=== PATIENT | female | born 1995 | race Two or more races ===

== ENCOUNTER 2020-07-10 20:57 | Emergency (ER) | payer OTHER ==
[~2020-07-10] VITALS: Ht 160 cm; Wt 59.0 kg
--- NOTE | 2020-07-10 21:09 | NUR ---
ED Nurse Note: Patient walked in from home d/t head injury that occurred at 1730 today, per patient she was doing yoga and fell on her head, laceration noted on right medial side of head approximately 1 inch in length. Patient aao x 4 and ambulatory with steady gait. Patient reports she does not remember what occurred after the fall and she feels delayed in thinking than normal. Aching pain 3/10, nonradiating. Patient stable upon assessment.
[2020-07-10 21:11] VITALS: BP 110/70
--- NOTE | 2020-07-10 21:28 | NUR ---
ED Nurse Note: ERMD at bedside.
--- NOTE | 2020-07-10 21:31 | Emergency Room Report ---
History of Present Illness General Chief Complaint: Laceration Source: Patient Present Illness HPI Disclaimer: Please note that this report is being documented using Theorem technology. This can lead to erroneous entry secondary to incorrect interpretation by the dictating instrument. HPI: 25-year-old female presents after a mechanical fall. She was doing a yoga pose when she fell forward striking her head. Questionable loss of consciousness. She denies any nausea or vomiting. But sustained a laceration to the top of the scalp. She denies any medical history. She is currently not on any medications. 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 Patient History Last Menstrual Period: 07/2020; has IUD Reviewed Nursing Documentation: PMH: Agreed; PSxH: Agreed Review of Systems All Other Systems: negative except mentioned in HPI Physical Exam Vital Signs Date Time Temp Pulse Resp B/P (MAP) Pulse Ox O2 Delivery O2 Flow Rate FiO2 07/10/20 21:00 98.2 100 15 102/64 (77) 97 Room Air Sp02 EP Interpretation: reviewed, normal General Appearance: well appearing, no apparent distress Head: normocephalic, other - 3 cm laceration to the scalp, no depressions Eyes: bilateral eye PERRL, bilateral eye EOMI ENT: hearing grossly normal, moist mucus membranes Neck: full range of motion, supple, other - No midline tenderness Respiratory: lungs clear, normal breath sounds, no rhonchi, no respiratory distress, no retraction, no wheezing Cardiovascular #1: normal peripheral pulses, regular rate, rhythm, no murmur Gastrointestinal: non tender, soft, non-distended, no guarding Neurologic: alert, motor strength/tone normal, dredge master III-XII nml as tested, oriented x3, cerebellar normal, normal gait, no focal defects Skin: normal color, warm/dry Procedures Laceration/Wound Repair Laceration/Wound Repair : Consent: Verbal Wound Location: head Wound's Depth, Shape: superficial, linear Wound Explored: clean Wound Repaired With: anson Patient Tolerated: Well Complications: None Medical Decision Making Diagnostic Impression: Primary Impression: Closed head injury Additional Impression: Scalp laceration ER Course Patient presented after a fall from a yoga pose. She was neurologically intact on exam in no acute distress. She did sustain a laceration of the scalp which was repaired by me. Currently have low suspicion for skull fracture or intracranial hemorrhage. I will discharge patient with return precautions and return in 1 week for staple removal. Return sooner for any worsening symptoms. Discussed doing a CT scan of the brain but at this time we will defer as she is neurologically intact. Last Vital Signs Date Time Temp Pulse Resp B/P (MAP) Pulse Ox O2 Delivery O2 Flow Rate FiO2 07/10/20 21:11 98.2 72 18 110/70 98 Room Air Disposition: HOME, SELF-CARE Condition: Improved Timoteo Argueta M.D. Jul 10, 2020 21:31
[2020-07-10 21:35] VITALS: BP 118/78
--- NOTE | 2020-07-10 21:35 | NUR ---
ER DISCHARGE NOTE: Patient is cleared to be discharged per ERMD, pt is aox4, on room air, with stable vital signs. pt was given dc instructions, pt was able to verbalize understanding, pt id band removed. pt is able to ambulate with steady gait. pt took all belongings. pt stable upon discharge.
== END 2020-07-10 21:35 | disposition home or self-care (01) ==
LOC: EMR 21:18
DX: S01.01XA Laceration without foreign body of scalp, initial encounter (principal); S09.90XA Unspecified injury of head, initial encounter; W22.8XXA Striking against or struck by other objects, initial encounter; Y93.42 Activity, yoga; Y92.9 Unspecified place or not applicable; Z97.5 Presence of (intrauterine) contraceptive device; Z88.6 Allergy status to analgesic agent
CPT/HCPCS: 99283

== ENCOUNTER 2020-07-18 10:34 | Emergency (ER) | payer MEDICAID ==
[~2020-07-18] VITALS: Ht 160 cm; Wt 59.0 kg
[2020-07-18 10:44] VITALS: BP 110/66
--- NOTE | 2020-07-18 11:14 | Emergency Room Report ---
History of Present Illness General Chief Complaint: Wound Recheck/Suture Removal Source: Patient Present Illness HPI The patient presents for removal of anson from her scalp. The patient has anson secondary to a scalp laceration. She is requesting removal. She states she is feeling well with no complaints. She has no pain. 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 COVID-19 Screening: Negative COVID-19 COVID-19 Testing Source: 07/17/20 Patient History Past Medical History: other - G^PD Social History: Denies: smoking, alcohol use, drug use Now: No Reviewed Nursing Documentation: PMH: Agreed; PSxH: Agreed Nursing Documentation-PMH Past Medical History: No History, Except For Review of Systems All Other Systems: negative except mentioned in HPI Physical Exam Vital Signs Date Time Temp Pulse Resp B/P (MAP) Pulse Ox O2 Delivery O2 Flow Rate FiO2 07/18/20 10:44 98.6 80 17 110/66 (81) 98 Room Air Sp02 EP Interpretation: reviewed, normal General Appearance: no apparent distress, alert, GCS 15, non-toxic Head: normocephalic, other - [address], healed scalp laceration. Eyes: bilateral eye normal inspection, bilateral eye PERRL ENT: hearing grossly normal, normal voice Neck: normal inspection Respiratory: no respiratory distress, no retraction, no accessory muscle use, speaking full sentences Rectal: deferred Musculoskeletal: back normal, normal range of motion, gait/station normal, non- tender Neurologic: alert, motor strength/tone normal, oriented x3, sensory intact, responsive, speech normal Psychiatric: judgement/insight normal, memory normal, mood/affect normal, no suicidal/homicidal ideation Skin: other - See above in Head exam. Medical Decision Making Diagnostic Impression: Primary Impression: Encounter for removal of sutures Additional Impression: Encounter for post-traumatic wound check ER Course The patient's anson were removed without complication or incident in a standard manner. The patient's wound is healed without evidence of infection. The patient has no complaints. The patient is given close return precautions and follow instructions. Last Vital Signs Date Time Temp Pulse Resp B/P (MAP) Pulse Ox O2 Delivery O2 Flow Rate FiO2 07/18/20 10:44 98.6 80 17 110/66 98 Room Air Status: improved Disposition: HOME, SELF-CARE Condition: Improved Patient Instructions: Wound Check Keily Quintana DO Jul 18, 2020 11:13
[2020-07-18 11:17] VITALS: BP 108/67
== END 2020-07-18 12:30 | disposition home or self-care (01) ==
LOC: EMR 11:10
DX: Z48.02 Encounter for removal of sutures (principal); Z88.6 Allergy status to analgesic agent
CPT/HCPCS: 99281